=== PATIENT | female | born 1955 | race Caucasian/White ===

== ENCOUNTER 2022-12-04 09:20 | Emergency (ER) | payer BC, SELFPAY ==
[2022-12-04] VITALS (9 sets, daily range): BP systolic 133–147; BP diastolic 69–96; PULSE 73–97; RESP 18; TEMP 36.2; O2SAT 91–96; BMI 31.9
--- NOTE | 2022-12-04 10:52 | CRLHL7_ITS ---
For Patients: As a result of the 21st Century Cures Act, medical imaging exams and procedure reports are released immediately into your electronic medical record. You may view this report before your referring provider. If you have questions, please contact your health care provider. INDICATION: Abdominal pain, not otherwise described. Back pain. Nausea. History of kidney stones. TECHNIQUE: CT abdomen and pelvis without contrast. COMPARISON: No prior CT. FINDINGS: The study is performed without intravenous contrast. This limits sensitivity for detection of abdominal/pelvic pathology, including pathology of the vasculature (specifically evaluation of possible vascular thromboembolism, arterial dissection, stenosis or occlusion), the integrity of the bowel (including bowel wall enhancement) and solid viscera (including detection of focal lesions within the viscera). If there is ongoing concern for otherwise occult pathology such as this, based on the clinical presentation of the patient, consider the risk/benefit of a study with intravenous contrast. Lower chest: Small sliding hiatus hernia. Benign calcified left lower lobe granuloma. Pleural based inferior lingular left upper lobe reticular opacities consistent with nonspecific mild fibrosis. Liver: Hepatic steatosis. Gallbladder and bile ducts: No stones or inflammation. No biliary dilatation. Pancreas: Unremarkable. No mass or inflammation. Spleen: Normal in size. No masses. Adrenal glands: Normal in size. No nodules. Kidneys: 9 mm obstructing stone at the left ureteropelvic junction (3; 79). Mild upstream left hydroureteronephrosis and left perinephric fat stranding consistent with obstructive uropathy. Punctate nonobstructing at posterior interpolar my caliceal nephroliths (2; 65). GI tract: Unremarkable. Normal in caliber. No sign of mass or inflammation. The appendix is not identified. Vasculature: Diffuse moderate to severe aortoiliac and branch vessel atherosclerotic mural calcification. No aneurysm. Lymph nodes: No lymphadenopathy. Peritoneum/Abdominal Wall: Unremarkable. No sign of mass or infiltration. No free air or significant free fluid. 2.4 cm (transverse) fat containing anterior midline supraumbilical ventral abdominal wall hernia with a 1.0 cm neck (2; 73). Pelvis: Hysterectomy.. No pelvic masses. Bones: Unremarkable for age. IMPRESSION: 9 mm obstructing left ureteropelvic junction stone. Additional punctate nonobstructing posterior interpolar left moderate caliceal nephroliths. Please note that all CT scans at this facility use dose modulation, iterative reconstruction, and/or weight-based dosing when appropriate to reduce radiation dose to as low as reasonably achievable. Dictated by Margarito Collins MD @ 12/04/2022 12:23:41 PM (Electronically Signed)
--- NOTE | 2022-12-04 10:54 | ED.GENADULT ---
HPI - General Adult General Time Seen by Provider: 10:54 Date Seen: 12/04/22 Chief complaint: Abdominal Pain Stated complaint: abdominal pain Time Seen by Provider: 12/04/22 10:32 Source: patient Mode of arrival: ambulatory Limitations: no limitations History of Present Illness HPI narrative: Patient is a 67 year white female with a 2 week history of some left lower abdominal cramping and flank discomfort. She reports that when she eats she gets very ?crampy? and has occasional loose stools. She has had no history of significant abdominal problems or inflammatory bowel disease. She does have history of hypothyroidism and hypertension for which he takes amlodipine and Synthroid. Patient denies chest pain or shortness of breath denies marked fever, but has had nausea at times. Specially after she eats. She feels like her abdomen is a little more distended, feels like she is ?backed up?. No blood in her stool no blood in her vomitus, no weight loss. Does have a history of a kidney stone apparently has a intrarenal kidney stone that was ?pretty large?. Related Data Home Medications Medication Instructions Recorded Confirmed amlodipine 5 mg tablet 5 mg PO DAILY 12/04/22 12/04/22 levothyroxine 75 mcg tablet 75 mcg PO DAILY 12/04/22 12/04/22 (Synthroid) Previous Rx's Medication Instructions Recorded ciprofloxacin HCl 250 mg tablet 250 mg PO BID #10 tabs 12/04/22 (Cipro) hydrocodone 7.5 mg-acetaminophen 1 tab PO Q8H PRN pain #14 tabs 12/04/22 325 mg tablet Allergies Allergy/AdvReac Type Severity Reaction Status Date / Time Sulfa (Sulfonamide Allergy Verified 12/04/22 09:34 Antibiotics) Review of Systems Status of ROS: Reports: 6 or more systems reviewed and unremarkable except as noted in History and below PFSH PFSH Social History Smoking Status: Current every day smoker What tobacco products do you use: cigarettes Smoking packs per day: 0.5 Smoking cigarettes per day: 10.0 How often do you have a drink containing alcohol: never How often do you have six or more drinks on one occasion: Never AUDIT-C Alcohol total score: 0 Non-prescribed substance use: denies use service: No Exam Narrative: Exam Narrative: Objective: Vital signs unremarkable other than slightly elevated blood pressure Alert orient x3 No distress HEENT shows no facial asymmetry no scleral icterus Neck is supple Chest clear Heart rhythm regular heart murmur Abdomen benign obese nontender no masses or peritonitis no palpable masses as mention. Extremities are no edema neurologic nonfocal : good peripheral perfusion noted. Const: Vital Signs, click to edit/add: Vital Signs - 24 hr 12/04/22 09:32 12/04/22 11:40 12/04/22 11:57 Temperature 97.2 F L Pulse Rate 77 Pulse Rate [Right Pulse Oximeter] 97 78 Respiratory Rate 18 18 Blood Pressure Blood Pressure [Ri ght Upper Arm] 147/96 H 140/76 H Pulse Oximetry 96 94 91 Oxygen Delivery Me thod Room Air Room Air 12/04/22 12:00 12/04/22 12:02 12/04/22 12:15 Temperature Pulse Rate 74 75 73 Pulse Rate [Right Pulse Oximeter] Respiratory Rate Blood Pressure 133/69 Blood Pressure [Ri ght Upper Arm] Pulse Oximetry 92 92 94 Oxygen Delivery Me thod 12/04/22 12:30 12/04/22 12:31 12/04/22 12:45 Temperature Pulse Rate 75 75 81 Pulse Rate [Right Pulse Oximeter] Respiratory Rate Blood Pressure 134/78 Blood Pressure [Ri ght Upper Arm] Pulse Oximetry 92 92 94 Oxygen Delivery Me thod Course Vital Signs Vital signs: Initial Vital Signs Temperature 97.2 F L 12/04/22 09:32 Temperature Source Temporal Artery Scan 12/04/22 09:32 Pulse Rate 97 12/04/22 09:32 Respiratory Rate 18 12/04/22 09:32 Blood Pressure 147/96 H 12/04/22 09:32 Blood Pressure Mean 113 H 12/04/22 09:32 Blood Pressure Position Sitting 12/04/22 09:32 Pulse Oximetry 96 12/04/22 09:32 Oxygen Delivery Method Room Air 12/04/22 09:32 Vital Signs Temperature 97.2 F L 12/04/22 09:32 Pulse Rate 97 12/04/22 09:32 Respiratory Rate 18 12/04/22 09:32 Blood Pressure 147/96 H 12/04/22 09:32 Pulse Oximetry 96 12/04/22 09:32 Oxygen Delivery Method Room Air 12/04/22 09:32 Temperature 97.2 F L 12/04/22 09:32 Pulse Rate 81 12/04/22 12:45 Respiratory Rate 18 12/04/22 11:40 Blood Pressure 134/78 12/04/22 12:31 Pulse Oximetry 94 12/04/22 12:45 Oxygen Delivery Method Room Air 12/04/22 11:40 Medical Decision Making MDM Narrative Medical decision making narrative: [age] year white female with postprandial cramping and left flank and left lower abdominal discomfort over the last couple of weeks. Rule out colitis, rule out diverticulitis, rule out kidney stone P. Patient will get urinalysis, lab studies, CT scan without contrast of abdomen pelvis, IV morphine and IV fluid. Disposition pending findings above. Addendum 12:08 p.m.:t's labs looks to show a reassuring white count hemoglobin, ER profile is unremarkable, renal function is normal, CRP is slightly elevated 2.5, COVID/influenza/RSV are negative. CT scan of the abdomen is pending. Patient declined morphine at this point, and wanted to try some Tylenol. Addendum 12:45 p.m.: The patient has a 9 mm obstructing left ureteropelvic junction stone. I think this is been giving her symptoms. She has a normal white count, no fever. Will check a urinalysis to make sure there is no infection. I think she needs Urology. I think this can be done as an outpatient. She will have some pain control at home. Will collect a urine sample and then treat with antibiotics if needed. She does not appear toxic appears to be more obstructive symptoms than infectious. Will call her clinic and [facility] a in [place] and trying get an appointment for Urology at their preferred location. If she gets fevers rigors or chills she should follow up in the ER Lab Data Labs: Lab Results 12/04/22 12/04/22 Range/Units 11:05 11:10 WBC 7.89 (4.50-11.00) K/uL RBC 5.09 (4.00-5.20) m/uL Hgb 15.1 (12.0-16.0) gm/dL Hct 44.3 (33.0-51.0) % MCV 87 (80-100) fL MCH 30 (26-34) pg MCHC 34 (32-36) gm/dL RDW Coeff of Letitia 14.1 (11.5-15.5) % Plt Count 320 (140-440) K/uL Neut % (Auto) 58.7 (42.0-72.0) % Lymph % (Auto) 31.6 (20-44) % [place] % (Auto) 7.5 (0.0-11.0) % Eos % (Auto) 1.6 (0.0-7.0) % Baso % (Auto) 0.5 (0.0-3.0) % Neut # (Auto) 4.63 (1.7-7.0) K/uL Lymph # (Auto) 2.49 (0.90-2.90) K/uL [place] # (Auto) 0.60 (0.00-0.90) K/UL Eos # (Auto) 0.13 (0.00-0.50) K/uL Baso # (Auto) 0.04 (0.00-0.30) K/uL Abs Immat Gran (auto) 0.01 (0.00-0.30) K/uL Imm/Tot Granulo (auto) 0.1 % Sodium 141 (135-149) mmol/L Potassium 4.1 (3.6-5.1) mmol/L Chloride 106 (96-114) mmol/L Carbon Dioxide 29 (20-32) mmol/L Anion Gap 6 L (7-15) mEq/L BUN 9 (7-30) mg/dL Creatinine 0.8 (0.5-1.5) mg/dL Estimated Creat Clear 46.40 Estimated GFR 82 ml/min Glucose 87 (60-115) mg/dL Lactate 1.2 (0.5-1.9) mmol/L Calcium 9.6 (8.4-10.6) mg/dL Total Bilirubin 0.6 (0.1-1.5) mg/dL Direct Bilirubin 0.0 (0.0-0.5) mg/dL AST 31 (12-35) U/L ALT 26 (4-35) U/L Alkaline Phosphatase 82 (40-150) U/L C-Reactive Protein 2.5 H (0.5-1.0) mg/dL Total Protein 7.3 (6.0-8.3) g/dL Albumin 4.3 (3.3-5.0) g/dL Amylase 43 (18-89) U/L SARS-CoV-2 (PCR) Negative SARS-CoV-2 (Negative) Influenza Type A (PCR) Negative PCR FLU A (Negative) Influenza Type B (PCR) Negative PCR FLU B (Negative) RSV (PCR) Negative PCR RSV (Negative) Discharge Plan Discharge Clinical Impression: Abdominal pain, Kidney stone on left side Patient Disposition: Home w/ Parent or Adult Condition: Stable Additional Instructions: Follow-up with urology as we planned, [place] as needed for pain, may take Advil as well. Return if fevers chills or worsening symptomology. Will put her on antibiotic prevent infection. Please call to [phone] to schedule a follow up appointment with [facility]. Activity Level: Light activity Discharge Diet: Regular Prescriptions: New hydrocodone-acetaminophen 7.5-325 mg tablet 1 tab PO Q8H PRN (Reason: pain) Qty: 14 0RF ciprofloxacin HCl [Cipro] 250 mg tablet 250 mg PO BID Qty: 10 0RF No Action amlodipine 5 mg tablet 5 mg PO DAILY levothyroxine [Synthroid] 75 mcg tablet 75 mcg PO DAILY Follow Up/Referrals: Provider,Not a Local [Primary Care Provider] - Stand Alone Forms: Essential Viewing Info Instructions
[2022-12-04 11:18] LABS: Lactate* 1.2 mmol/L (0.5-1.9)
[2022-12-04 11:22] LABS: Basophils Absolute Auto 0.04 K/uL (0.00-0.30); Basophils Percent Auto 0.5 % (0.0-3.0); Eosinophils Absolute Auto 0.13 K/uL (0.00-0.50); Eosinophils Percent Auto 1.6 % (0.0-7.0); Hematocrit 44.3 % (33.0-51.0); Hemoglobin* 15.1 gm/dL (12.0-16.0); Immature Granulocytes Abs Auto 0.01 K/uL (0.00-0.30); Immature Granulocytes Pct Auto 0.1 %; Lymphocytes Absolute Auto 2.49 K/uL (0.90-2.90); Lymphocytes Percent Auto 31.6 % (20-44); Mean Corpuscular HGB Conc 34 gm/dL (32-36); Mean Corpuscular Hemoglobin 30 pg (26-34); Mean Corpuscular Volume 87 fL (80-100); Monocytes Percent Auto 7.5 % (0.0-11.0); Neutrophils Absolute Auto 4.63 K/uL (1.7-7.0); Neutrophils Percent Auto 58.7 % (42.0-72.0); Platelet Count* 320 K/uL (140-440); RDW Coefficient of Variation % 14.1 % (11.5-15.5); Red Blood Count 5.09 m/uL (4.00-5.20); White Blood Count* 7.89 K/uL (4.50-11.00)
[2022-12-04] MEDS: LORazepam 2 MG/ML inj 0.5 MG IVP (11:22)
[2022-12-04] MEDS: 0.9 % SODIUM CHLORIDE 1000 ml 1,000 ML 6000 ML IV (11:40)
[2022-12-04 11:42] LABS: Albumin* 4.3 g/dL (3.3-5.0); Chloride* 106 mmol/L (96-114)
[2022-12-04 11:43] LABS: Potassium* 4.1 mmol/L (3.6-5.1); Sodium* 141 mmol/L (135-149)
[2022-12-04 11:44] LABS: Amylase* 43 U/L (18-89)
[2022-12-04 11:45] LABS: Creatinine* 0.8 mg/dL (0.5-1.5); Estimated Glomerular Filt Rate 82 ml/min
[2022-12-04 11:46] LABS: Alanine Aminotransferase* 26 U/L (4-35); Alkaline Phosphatase* 82 U/L (40-150); Anion Gap 6 mEq/L (7-15); Aspartate Amino Transferase* 31 U/L (12-35); Bilirubin Total* 0.6 mg/dL (0.1-1.5); Blood Urea Nitrogen* 9 mg/dL (7-30); Calcium* 9.6 mg/dL (8.4-10.6); Carbon Dioxide* 29 mmol/L (20-32); Glucose* 87 mg/dL (60-115); Total Protein* 7.3 g/dL (6.0-8.3)
[2022-12-04 11:49] LABS: C Reactive Protein* 2.5 mg/dL (0.5-1.0)
[2022-12-04 11:51] LABS: Slide Review Reflex No
[2022-12-04 11:54] LABS: PCR FLU A Negative PCR FLU A (Negative); PCR FLU B Negative PCR FLU B (Negative); PCR RSV Negative PCR RSV (Negative)
[2022-12-04 11:55] LABS: SARS PCR* Negative SARS-CoV-2 (Negative)
[2022-12-04] MEDS: ACETAMINOPHEN 500 MG TABLET 1000 MG PO (12:05)
[2022-12-04 13:14] LABS: Appearance Urine Cloudy (Clear); Bilirubin Urine Negative (Negative); Blood Urine 3+ (Negative); Color Urine Yellow (Yellow); Glucose Urine Negative (Negative); Ketones Urine Negative (Negative); Leukocyte Esterase Urine Negative (Negative); Nitrite Urine Negative (Negative); Protein Urine Negative (Negative); Urobilinogen Urine 0.2 (0.2-1.0)
[2022-12-04] MEDS: CIPROFLOXACIN 500 MG TABLET PO (13:20)
[2022-12-04 13:29] LABS: RBC Urine 0-2 (0-2); Squamous Epithelial Cell Urine Few (None-Few); WBC Urine 0-2 (0-5)
== END 2022-12-04 13:20 | disposition home or self-care (01) ==
PROVIDERS: Emergency Provider Family Medicine
DX: R10.9 Unspecified abdominal pain (principal); N20.0 Calculus of kidney
CPT/HCPCS: 36415; 74176; 80048; 80076; 81001; 82150; 83605; 85025; 86140; 87086; 87631; 96361; 96374; 96375; 99284; 99285; A9270; J2060; J7030

== ENCOUNTER 2023-02-04 08:12 | Outpatient (CLI) | payer BC, SELFPAY ==
--- NOTE | 2023-02-04 08:15 | CRLHL7_ITS ---
For Patients: As a result of the Century Cures Act, medical imaging exams and procedure reports are released immediately into your electronic medical record. You may view this report before your referring provider. If you have questions, please contact your health care provider. CLINICAL HISTORY: Kidney stone COMPARISON: CT 12/04/2022 TECHNIQUE: Salazar scale and color Doppler images were acquired of the kidneys and urinary bladder. FINDINGS: Interval resolution of left-sided hydronephrosis since the prior study. No renal stones on the current study. The right kidney measures 10.1cm in length and the left kidney measures 10.4cm in length. The renal cortex appears of normal thickness. The urinary bladder appears normal. Color Doppler images reveal a normal appearance of both ureteral jets. There is no evidence of bladder calculi or diverticula. IMPRESSION: Resolution of left-sided hydronephrosis. No stones. Dictated by Orlando Jordan MD @ 02/04/2023 11:06:43 AM (Electronically Signed)
== END 2023-02-04 08:13 | disposition home or self-care (01) ==
LOC: US 08:14
PROVIDERS: Visit Provider Urology
DX: N20.0 Calculus of kidney (principal)
CPT/HCPCS: 76775

== ENCOUNTER 2023-03-11 14:30 | Outpatient (REF) | payer BC, SELFPAY ==
[2023-03-11 17:20] LABS: Chloride* 100 mmol/L (96-114); Sodium* 140 mmol/L (135-149)
[2023-03-11 17:21] LABS: Potassium* 4.6 mmol/L (3.6-5.1)
[2023-03-11 17:24] LABS: Anion Gap 13 mEq/L (7-15); Blood Urea Nitrogen* 13 mg/dL (7-30); Calcium* 10.1 mg/dL (8.4-10.6); Carbon Dioxide* 27 mmol/L (20-32); Uric Acid* 5.1 mg/dL (2.2-8.4)
== END 2023-03-11 14:31 | disposition home or self-care (01) ==
LOC: NPINS 14:30
PROVIDERS: Visit Provider Urology
DX: N20.0 Calculus of kidney (principal)
CPT/HCPCS: 80051; 82310; 83970; 84520; 84550